=== PATIENT | female | born 1975 | race Two or more races ===

== ENCOUNTER 2020-01-05 15:48 | Emergency (ER) | payer MEDICAID, OTHER ==
[~2020-01-05] VITALS: Ht 154.9 cm; Wt 90.7 kg
[2020-01-05 15:48] VITALS: BP 151/84
== END 2020-01-05 19:10 | disposition left against medical advice (07) ==
LOC: ER 15:48
DX: M79.602 Pain in left arm (principal); Z53.21 Procedure and treatment not carried out due to patient leaving prior to being seen by health care provider
CPT/HCPCS: 73060